=== PATIENT | male | born 1950 | race Asian ===

== ENCOUNTER 2017-11-08 08:50 | Emergency (ER) | payer MEDICARE ==
[~2017-11-08] VITALS: Ht 172.7 cm; Wt 68.0 kg
[2017-11-08 08:53] VITALS: BP 153/86
--- NOTE | 2017-11-08 09:25 | Emergency Room Report ---
History of Present Illness General Chief Complaint: Male Urogenital Problems Source: Patient Present Illness HPI 67-year-old male presents with unable to urinate since last night. She has no history of BPH, saw urologist yesterday, a Montoya was removed at patient's insistence. Patient states during that urology visit camera was placed and looked at his enlarged prostate, surgeon has recommended surgery. Patient had had the Montoya for over a month. Denies abdominal pain, nausea or vomiting however has significant suprapubic pain. Allergies: Coded Allergies: No Known Allergies (Unverified , 11/08/17) Patient History Past Medical History: other - bph Past Surgical History: none Pertinent Family History: none Social History: Denies: smoking, alcohol use, drug use Immunizations: UTD Reviewed Nursing Documentation: PMH: Agreed, PSxH: Agreed Review of Systems All Other Systems: negative except mentioned in HPI Physical Exam Vital Signs Date Time Temp Pulse Resp B/P (MAP) Pulse Ox O2 Delivery O2 Flow Rate FiO2 11/08/17 08:43 97.9 78 18 128/76 98 Room Air Sp02 EP Interpretation: reviewed, normal General Appearance: normal inspection, well appearing, no apparent distress, alert, GCS 15, non-toxic Head: normocephalic, atraumatic Eyes: bilateral eye PERRL, bilateral eye EOMI ENT: normal ENT inspection, hearing grossly normal, normal pharynx, no angioedema, normal voice, TMs + canals normal, uvula midline, moist mucus membranes Neck: normal inspection, full range of motion, supple, thyroid normal, no meningismus, no bony tend Respiratory: normal inspection, lungs clear, normal breath sounds, no rhonchi, no respiratory distress, no retraction, no accessory muscle use, no wheezing, speaking full sentences Cardiovascular #1: regular rate, rhythm, no edema, no JVD, normal capillary refill Gastrointestinal: normal inspection, normal bowel sounds, non tender, soft, no mass, no peritonitis, non-distended, no guarding, no hernia, no pulsatile mass Genitourinary: no CVA tenderness, other - Bedside ultrasound shows distended bladder with enlarged prostate visualized extending into bladder Musculoskeletal: normal inspection, back normal, normal range of motion, no calf tenderness, pelvis stable, Cordell's Sign negative Neurologic: normal inspection, alert, oriented x3, responsive, 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, motor strength/tone normal, cerebellar normal, normal gait, speech normal Psychiatric: normal inspection, judgement/insight normal, mood/affect normal, no suicidal/homicidal ideation, no delusions Skin: normal inspection, normal color, no rash Lymphatic: normal inspection, no adenopathy Medical Decision Making Diagnostic Impression: Primary Impression: Urinary retention due to benign prostatic hyperplasia Additional Impression: UTI (urinary tract infection) Qualified Codes: N30.01 - Acute cystitis with hematuria ER Course Vital signs stable, afebrile Montoya was replaced without difficulty by RN UA: nitrite positive Rx provided close urology followup ER course: Patient has remained stable during ED stay. Disposition: Patient is to be discharged to home. Prescriptions given are macrobid Patient is instructed to follow up with urologist in 2-3 days Strict return precautions discussed with patient such as fever, chills, worsening/severe pain, nausea, vomiting, which may indicate severe illness. Patient verbalizes understanding and agrees with plan. Please note that this Emergency Department Report was dictated using [employer] abstractor technology software, occasionally this can lead to erroneous entry secondary to interpretation by the dictation equipment Last Vital Signs Date Time Temp Pulse Resp B/P (MAP) Pulse Ox O2 Delivery O2 Flow Rate FiO2 11/08/17 08:43 97.9 78 18 128/76 98 Room Air Status: improved Disposition: HOME, SELF-CARE Scripts Nitrofurantoin Monohyd/M-Cryst* (MACROBID 100 MG*) 100 Mg Capsule 100 MG ORAL EVERY 12 HOURS for 7 Days, #14 CAP Prov: DOUG KLINE M.D. 11/08/17 Referrals: NOT CHOSEN HALEY/,REFERRING (PCP) DOUG KLINE M.D. Nov 08, 2017 09:25
[2017-11-08 09:32] LABS: APPEARANCE,URINE CLOUDY; BILIRUBIN, URINE NEGATIVE (NEGATIVE); COLOR,URINE PALE YELLOW; GLUCOSE, URINE (UA) 4+ (NEGATIVE); KETONES,URINE NEGATIVE (NEGATIVE); LEUKOCYTE ESTERASE ,URINE 3+ (NEGATIVE); NITRITE,URINE POSITIVE (NEGATIVE); PH,URINE 6 (4.5-8.0); PROTEIN,URINE 2+ (NEGATIVE); UROBILINOGEN,URINE NORMAL MG/DL (0.0-1.0)
[2017-11-08] MEDS ORDERED: NITROFURANTOIN100 M2 ORAL (09:53)
[2017-11-08 10:14] VITALS: BP 122/73
== END 2017-11-08 10:14 | disposition home or self-care (01) ==
LOC: EDBD 08:50 → EMR 09:08
DX: N40.0 Benign prostatic hyperplasia without lower urinary tract symptoms (principal); N30.01 Acute cystitis with hematuria
CPT/HCPCS: 81003; 87086; 87181; 99283